=== PATIENT | male | born 1990 | race Caucasian/White ===

== ENCOUNTER 2017-07-07 00:34 | Emergency (ER) | payer OTHER ==
[2017-07-07 00:39] VITALS: PULSE 100; RESP 16; TEMP 98.3; O2SAT 98
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
[2017-07-07] MEDS ORDERED: ROBA750T PO (03:26)
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
[2017-07-07 03:53] VITALS: BP 138/78; PULSE 84; RESP 18; O2SAT 98
== END 2017-07-07 03:55 | disposition home or self-care (01) ==
LOC: PHED 00:34
DX: S39.012A Strain of muscle, fascia and tendon of lower back, initial encounter (principal); V49.49XA Driver injured in collision with other motor vehicles in traffic accident, initial encounter; Y92.410 Unspecified street and highway as the place of occurrence of the external cause
CPT/HCPCS: 72100; 72170; 99284